=== PATIENT | male | born 1965 | race Caucasian/White ===

== ENCOUNTER 2017-09-14 01:30 | Emergency (ER) | payer OTHER ==
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
[2017-09-14] MEDS ORDERED: Haloperidol Lactate 5 MG/ML SDV IM ONE (02:32)
[2017-09-14] MEDS ORDERED: Take Home: LORazepam 0.5 MG Tab, 2 Tab Pack PO ONE (07:59)
== END 2017-09-14 08:40 | disposition home or self-care (01) ==
LOC: VM.ED 01:30
DX: S60.511A Abrasion of right hand, initial encounter (principal); V89.2XXA Person injured in unspecified motor-vehicle accident, traffic, initial encounter; F24 Shared psychotic disorder; Z88.5 Allergy status to narcotic agent; W22.8XXA Striking against or struck by other objects, initial encounter
CPT/HCPCS: 96372; 99284; A9270; J1630